=== PATIENT | male | born 1990 | race Caucasian/White ===

== ENCOUNTER 2019-08-28 19:09 | Emergency (ER) | payer OTHER ==
[~2019-08-28 19:09] MED LIST: Iopamidol 370 76% 100 ML VIAL ONE
[2019-08-28] MEDS ORDERED: Ondansetron ODT 4 MG TAB ONE (19:33)
[2019-08-28 19:50] LABS: #Lymphocytes 1.5 thou/uL (1.20-3.40); #Monocytes 0.7 thou/uL (0.11-0.59); #Neutrophils 12.8 thou/uL (1.40-6.50); %Basophils 0.3 % (0.0-1.0); %Eosinophils 0.2 % (0.0-10.0); %Lymphocytes 10.1 % (21.0-51.0); %Monocytes 4.7 % (0.0-10.0); %Neutrophils 84.7 % (42.0-75.0); Hemoglobin 15.3 g/dL (14.0-18.0); Mean Corpuscular HGB CONC 34.7 g/dL (32.0-36.0); Mean Corpuscular Volume 92.3 fL (78.0-98.0); Mean Platelet Volume 6.1 fL (7.4-10.4); Platelet Count 274 thou/uL (130-400); RBC Distribution Width 11.5 % (11.5-14.5); Red Blood Cell (RBC) Count 4.78 mill/uL (4.70-6.10); White Blood Cell (WBC) Count 15.2 thou/uL (4.8-10.8)
[2019-08-28 20:09] LABS: ALT (SGPT) 36 U/L (8-55); AST (SGOT) 24 U/L (5-34); Albumin 4.5 g/dL (3.5-5.0); Alkaline Phosphatase 65 U/L (40-110); Anion Gap 12 mmol/L (10-20); BUN (Urea Nitrogen) 15 mg/dL (8.9-20.6); Bilirubin, Total 0.9 mg/dL (0.2-1.2); Calc. Creatinine Clearance 0 mL/min (70-130); Calcium 9.5 mg/dL (7.8-10.44); Carbon Dioxide 26 mmol/L (22-29); Chloride 99 mmol/L (98-107); Estimated GFR-MDRD 86; Globulin 2.7 g/dL (2.4-3.5); Glucose 117 mg/dL (70-105); Lipase 14 U/L (8-78); Potassium 3.7 mmol/L (3.5-5.1); Protein, Total 7.2 g/dL (6.0-8.3); Sodium 133 mmol/L (136-145)
[2019-08-28] MEDS ORDERED: Morphine 4 MG/ML VIAL ONE (20:21)
[2019-08-28] MEDS ORDERED: Ondansetron PF 4 MG/2 ML Vial ONE (20:21)
[2019-08-28] MEDS ORDERED: Meropenem 2 GM, Admixture Fee 1 EACH in Sodium Chloride 0.9% 100 ML IVPB SCH (20:45)
--- NOTE | 2019-08-28 21:16 | CT ---
CT Abdomen Pelvis W Con: 08/28/2019 8:02 PM CLINICAL INFORMATION: Diffuse abdominal pain COMPARISON: None. TECHNIQUE: Multiple contiguous axial images were obtained and a CT of the abdomen and pelvis with IV contrast. C oronal and sagittal reformats were performed. FINDINGS: Lower Chest: within normal limits. Abdomen: Liver: within normal limits. Bile Ducts: Normal caliber. Gallbladder: No calcified gallstones. Normal caliber wall. Pancreas: within normal limits. Spleen: within normal limits. Adrenals: within normal limits. Kidneys: within normal limits. Pelvis: Reproductive Organs: No pelvic masses. Ureters: within normal limits. Bladder: within normal limits. Peritoneum: No ascites or free air, no fluid collection. Bowel: Normal caliber. Mesentery and Retroperitoneum: No enlarged mesenteric or retroperitoneal lymph nodes. Metallic coils in the left abdomen may be within the gonadal vein. Vessels: Normal. Abdominal Wall: within normal limits. Bones: Within normal limits IMPRESSION: No evidence of acute intraabdominal or pelvic abnormality.
== END 2019-08-28 22:00 | disposition home or self-care (01) ==
LOC: ERS 19:09
DX: R10.31 Right lower quadrant pain (principal)
CPT/HCPCS: 74177; 80053; 83690; 85025; 96361; 96365; 96375; J2185; J2270; J2405; J3490; Q0162; Q9967

== ENCOUNTER 2019-08-29 06:16 | Emergency (ER) | payer OTHER, SELFPAY ==
[2019-08-29 07:04] LABS: #Eosinphils 0.1 thou/uL (0.0-0.7); #Lymphocytes 2.8 thou/uL (1.20-3.40); #Monocytes 0.9 thou/uL (0.11-0.59); #Neutrophils 7.9 thou/uL (1.40-6.50); %Basophils 0.3 % (0.0-1.0); %Eosinophils 0.7 % (0.0-10.0); %Lymphocytes 23.9 % (21.0-51.0); %Monocytes 7.3 % (0.0-10.0); %Neutrophils 67.8 % (42.0-75.0); Hemoglobin 13.7 g/dL (14.0-18.0); Mean Corpuscular HGB CONC 34.6 g/dL (32.0-36.0); Mean Corpuscular Hemoglobin 32.5 pg (27.0-31.0); Mean Corpuscular Volume 93.7 fL (78.0-98.0); Mean Platelet Volume 5.9 fL (7.4-10.4); Platelet Count 210 thou/uL (130-400); RBC Distribution Width 11.7 % (11.5-14.5); Red Blood Cell (RBC) Count 4.23 mill/uL (4.70-6.10); White Blood Cell (WBC) Count 11.7 thou/uL (4.8-10.8)
[2019-08-29 07:28] LABS: ALT (SGPT) 31 U/L (8-55); AST (SGOT) 20 U/L (5-34); Albumin 3.8 g/dL (3.5-5.0); Alkaline Phosphatase 55 U/L (40-110); Anion Gap 10 mmol/L (10-20); BUN (Urea Nitrogen) 11 mg/dL (8.9-20.6); Bilirubin, Total 1.1 mg/dL (0.2-1.2); Calc. Creatinine Clearance 0 mL/min (70-130); Calcium 8.6 mg/dL (7.8-10.44); Carbon Dioxide 27 mmol/L (22-29); Chloride 105 mmol/L (98-107); Estimated GFR-MDRD 83; Globulin 2.4 g/dL (2.4-3.5); Glucose 98 mg/dL (70-105); Potassium 3.8 mmol/L (3.5-5.1); Protein, Total 6.2 g/dL (6.0-8.3); Sodium 138 mmol/L (136-145)
[2019-08-29 08:09] LABS: Bilirubin Negative (Negative); Blood, Urine Negative (Negative); Clarity Clear (Clear); Glucose, Urine (Dipstick) Normal (Negative); Leukocyte Negative Leu/uL (Negative); Nitrite Negative (Negative); Protein, Urine (Dipstick) Negative (Neg-Trace); Urobilinogen Normal mg/dL (Less than 2)
== END 2019-08-29 08:54 | disposition home or self-care (01) ==
LOC: ERS 06:16
DX: R10.33 Periumbilical pain (principal); R11.2 Nausea with vomiting, unspecified
CPT/HCPCS: 36415; 80053; 81003; 85025; 99284

== ENCOUNTER 2019-08-30 18:28 | Emergency (ER) | payer SELFPAY ==
[2019-08-30 19:47] LABS: #Basophils 0.1 thou/uL (0.0-0.2); #Eosinphils 0.1 thou/uL (0.0-0.7); #Lymphocytes 2.8 thou/uL (1.20-3.40); #Monocytes 0.6 thou/uL (0.11-0.59); #Neutrophils 2.7 thou/uL (1.40-6.50); %Basophils 0.9 % (0.0-1.0); %Eosinophils 2.2 % (0.0-10.0); %Lymphocytes 45.1 % (21.0-51.0); %Monocytes 8.7 % (0.0-10.0); %Neutrophils 43.1 % (42.0-75.0); Hemoglobin 13.5 g/dL (14.0-18.0); Mean Corpuscular HGB CONC 34.4 g/dL (32.0-36.0); Mean Corpuscular Hemoglobin 32.2 pg (27.0-31.0); Mean Corpuscular Volume 93.8 fL (78.0-98.0); Platelet Count 222 thou/uL (130-400); RBC Distribution Width 11.5 % (11.5-14.5); Red Blood Cell (RBC) Count 4.19 mill/uL (4.70-6.10); White Blood Cell (WBC) Count 6.3 thou/uL (4.8-10.8)
[2019-08-30 20:02] LABS: ALT (SGPT) 30 U/L (8-55); AST (SGOT) 24 U/L (5-34); Albumin 4.2 g/dL (3.5-5.0); Alkaline Phosphatase 55 U/L (40-110); Anion Gap 11 mmol/L (10-20); BUN (Urea Nitrogen) 8 mg/dL (8.9-20.6); Bilirubin, Total 0.6 mg/dL (0.2-1.2); Calc. Creatinine Clearance 0 mL/min (70-130); Calcium 8.9 mg/dL (7.8-10.44); Carbon Dioxide 29 mmol/L (22-29); Chloride 104 mmol/L (98-107); Estimated GFR-MDRD 87; Globulin 2.4 g/dL (2.4-3.5); Glucose 88 mg/dL (70-105); Potassium 3.7 mmol/L (3.5-5.1); Protein, Total 6.6 g/dL (6.0-8.3); Sodium 140 mmol/L (136-145)
--- NOTE | 2019-08-31 10:08 | CON ---
DATE OF CONSULTATION: CHIEF COMPLAINT: Abdominal pain. HISTORY OF PRESENT ILLNESS: Mr. Samuels is a 29-year-old male with abdominal pain since Wednesday. He states that Wednesday, he began having severe diffuse abdominal pain, nausea, and vomiting. The symptoms persisted through the evening, so he came into the emergency room. A CT scan was performed, which did not show any acute abnormalities and this was done with IV contrast with no p.o. contrast. He did have an elevation in his white count, but no fevers or chills and went home from the emergency room. He states that the abdominal pain persisted, but became more centered in the epigastrium and was sort of dull in quality with intermittent exacerbation on Wednesday, but his symptoms were [id number] and he was able to keep down liquids and some food, although eating and drinking did seem to exacerbate his symptoms. He states that since the onset of his symptoms, the pain has been more persistent in the upper abdomen, but that he is most tender to palpation in the right lower quadrant and this has been . He states that from Wednesday to the day, his symptoms have not changed much. He states that the pain is a little better and is only happening intermittently. I saw him in the emergency room. He was not having any pain. However, he states that he has been taking less by mouth because of eating and drinking exacerbating the symptoms. He has not had any fevers or chills throughout this time. He denies any unusual ingestions or ill contact. The pain in the right lower quadrant is treated by sudden movements or tensing of stomach muscles. He has been having normal bowel movements throughout. He did have some diarrhea Wednesday but that was attributed to MiraLAX, which he took because he was told that the CT showed that he had some possible constipation. PAST MEDICAL HISTORY: None. PAST SURGICAL HISTORY: Varicocele surgery . FAMILY HISTORY: Noncontributory. REVIEW OF SYSTEMS: Ten-system review of systems is negative except per HPI. SOCIAL HISTORY: The patient does not smoke. Use illicit drugs and drinks only rarely and not recently. ALLERGIES: NO KNOWN DRUG ALLERGIES. OUTPATIENT MEDICATION: No outpatient medication. PHYSICAL EXAMINATION: VITAL SIGNS: The patient is afebrile with normal vital signs. GENERAL: Reveals a healthy-appearing young man, in no acute distress. He is not flushed or toxic, jaundiced or icteric in appearance. HEENT: Unremarkable. NECK: Supple without lymphadenopathy or thyroid nodules. HEART: Regular in its rate and rhythm. No murmurs, rubs, or gallops. LUNGS: Clear to auscultation bilaterally. ABDOMEN: Soft and nondistended. He has focal tenderness in the right lower quadrant with some rebound. Mild tenderness in the epigastrium. No guarding or rigidity. Negative heel tap, Rovsing's, and obturator signs. EXTREMITIES: Warm and well perfused without edema. NEURO: No focal deficits. PSYCHIATRIC: Alert, oriented, and appropriate. LABORATORY DATA: White count today is normal with a normal differential. He came in on Wednesday. His white count was elevated at 15 and he had a slight left shift, but this has improved over the past 2 days. ASSESSMENT: Abdominal pain, likely due to viral gastroenteritis with right lower quadrant tenderness, perhaps attributable to mesenteric adenitis. I think it is extremely unlikely that the patient has appendicitis since the symptom seems to be slowly improving, his white count is normalizing, and he has not had any fevers or chills. He was encouraged to increase his fluid intake and return if he has worsening symptoms. We did discuss repeating his CT scan. However, I think that the yield is low. He does not have any evidence of obstruction and his clinical picture is more consistent with a self-limiting process. However, if his symptoms do not resolve or if they did not worsen, I would recommend repeating CT scan this time with oral contrast because of the thin body habitus. CT with IV contrast only was not as helpful as if he had refused oral contrast. Job ID: [id number]
== END 2019-08-30 20:45 | disposition home or self-care (01) ==
LOC: ERS 18:28
DX: R10.31 Right lower quadrant pain (principal)
CPT/HCPCS: 36415; 80053; 85025; 99284

== ENCOUNTER 2020-05-13 15:29 | Outpatient (CLI) | payer OTHER ==
--- NOTE | 2020-05-13 16:57 | MRI ---
MRI OF RIGHT INDEX FINGER PERFORMED WITHOUT CONTRAST ENHANCEMENT: History: Index finger pain, injury about 4 months ago. Comparison: Plain film evaluation, 02-22-2020. FINDINGS: The marrow signal change within the phalanges is normal. On the ulnar side of the PIP joint, the collateral ligament is indistinct as compared to the radial s deandra. There is no abnormalities noted of either the extensor tendons or extensor tendon costa region. T he flexor tendons are also unremarkable. No tenosynovitis change. No bolstering of the flexor tendon to suggest any type of pulling injury. IMPRESSION: Some mild increased signal change and thickening to the ulnar side of the collateral ligament of the PIP joint. No other findings. No subluxation or evidence of any type of marrow edema change in this a elyssa. POS: [facility]
== END 2020-05-13 15:30 | disposition home or self-care (01) ==
LOC: BICMRI 15:29 → MRI 15:30
PROVIDERS: ATTEND Orthopaedic Surgery
DX: S63.610A Unspecified sprain of right index finger, initial encounter (principal)

== ENCOUNTER 2020-11-15 17:30 | Outpatient (CLI) | payer OTHER, SELFPAY | END 2020-11-15 17:31 | disposition home or self-care (01) | LOC: SLEEPLAB 17:30 | PROVIDERS: ATTEND Dentist General Practice | DX: G47.33 Obstructive sleep apnea (adult) (pediatric) (principal); R06.83 Snoring; G47.00 Insomnia, unspecified | CPT/HCPCS: 95806 ==

== ENCOUNTER 2021-07-28 01:08 | Observation (INO) | payer OTHER ==
[2021-07-28 02:07] LABS: Hemoglobin 14.8 g/dL (14.0-18.0); Mean Corpuscular HGB CONC 35.2 g/dL (32.0-36.0); Mean Corpuscular Hemoglobin 32.5 pg (27.0-31.0); Mean Corpuscular Volume 92.1 fL (78.0-98.0); Platelet Count 227 thou/uL (130-400); RBC Distribution Width 11.8 % (11.5-14.5); Red Blood Cell (RBC) Count 4.57 mill/uL (4.70-6.10); White Blood Cell (WBC) Count 4.6 thou/uL (4.8-10.8)
[2021-07-28] MEDS ORDERED: Ondansetron PF 4 MG/2 ML Vial ONE ×2 (02:07→09:38)
[2021-07-28] MEDS ORDERED: Morphine 4 MG/ML VIAL ONE (02:07)
[2021-07-28 02:24] LABS: ALT (SGPT) 20 U/L (8-55); AST (SGOT) 23 U/L (5-34); Albumin 3.9 g/dL (3.5-5.0); Alkaline Phosphatase 64 U/L (40-110); Anion Gap 10 mmol/L (10-20); BUN (Urea Nitrogen) 8 mg/dL (8.9-20.6); Bilirubin, Total 0.5 mg/dL (0.2-1.2); Calc. Creatinine Clearance 0 mL/min (70-130); Calcium 8.9 mg/dL (7.8-10.44); Carbon Dioxide 25 mmol/L (22-29); Chloride 105 mmol/L (98-107); Globulin 2.8 g/dL (2.4-3.5); Glucose 115 mg/dL (70-105); Protein, Total 6.7 g/dL (6.0-8.3); Sodium 136 mmol/L (136-145)
[2021-07-28] MEDS ORDERED: diphenhydrAMINE 50 MG/ML VIAL ONE (02:24)
[2021-07-28 02:34] LABS: Band 1 % (5-11); Eosinophils 1 % (0-10); Lymphocytes 33 % (21-51); MDiff Complete? YES; Monocytes 24 % (0-10); Neutrophil 35 % (42-75); Platelet Morphology Comment Appears Adequate; RBC Morphology Normal; Reactive Lymphocytes 6 % (0-10)
[2021-07-28] MEDS ORDERED: Piperacillin/Tazobactam 3.375 GM VIAL ONE (04:15)
[2021-07-28 04:40] LABS: Bilirubin Negative (Negative); Blood, Urine Negative (Negative); Clarity Clear (Clear); Glucose, Urine (Dipstick) Normal (Negative); Ketone, Urine Trace mg/dL (Negative); Leukocyte Negative Leu/uL (Negative); Nitrite Negative (Negative); Protein, Urine (Dipstick) Negative (Neg-Trace); Specific Gravity, Urine 1.023 (1.002-1.036); pH, Urine 6.5 (5.0-9.0)
[2021-07-28 06:25] VITALS: BMI 22.6
[2021-07-28] MEDS ORDERED: Fentanyl 100 MCG/2 ML VIAL SLOW IVP PRN ×3 (07:25→10:55)
[2021-07-28 08:45] LABS: SARS-CoV-2 NAA Rapid Test Not Detected (NotDetected)
[2021-07-28] MEDS ORDERED: Ondansetron PF 4 MG/2 ML Vial IVP PRN ×2 (08:48→10:55)
[2021-07-28] MEDS ORDERED: Ondansetron ODT 4 MG TAB PO PRN (08:48)
[2021-07-28] MEDS ORDERED: Midazolam HCl 2 mg/2 ml Vial ONE (08:50)
[2021-07-28] MEDS ORDERED: HYDROmorphone 2 MG/ML VIAL ONE (08:50)
[2021-07-28] MEDS ORDERED: Fentanyl 100 MCG/2 ML VIAL ONE ×2 (08:50→11:09)
[2021-07-28] MEDS ORDERED: Sodium Chloride 0.9% 1,000 ML IV SCH ×2 (09:00→10:55)
[2021-07-28] MEDS ORDERED: cefOXitin Sodium/Dextrose 2 GM/50 ML BAG ONE (09:15)
[2021-07-28] MEDS ORDERED: Lidocaine 1% w/Epinephrine 1:100K 20 ML VIAL ONE (09:16)
[2021-07-28] MEDS ORDERED: Bupivacaine 0.25% HCL 30 ML VIAL ONE (09:16)
[2021-07-28] MEDS ORDERED: Lidocaine 1% PF 5 ML VIAL ONE (09:38)
[2021-07-28] MEDS ORDERED: Dexamethasone 20 MG/5 ML VIAL ONE (09:38)
[2021-07-28] MEDS ORDERED: Succinylcholine 200 MG/10 ml SYRINGE FS ONE (09:38)
[2021-07-28] MEDS ORDERED: Rocuronium Bromide 10 MG/ML (10ML VIAL) ONE (09:38)
[2021-07-28] MEDS ORDERED: Glycopyrrolate 0.2 MG/ML 5 ML SYRINGE ONE (09:38)
[2021-07-28] MEDS ORDERED: PROPOFOL 200 MG/20 ML VIAL ONE (09:38)
[2021-07-28] MEDS ORDERED: Ketorolac Tromethamine 30 MG/ML VIAL ONE (09:38)
[2021-07-28] MEDS ORDERED: Dextrose 5% in Water 1,000 ML IV PRN (10:55)
[2021-07-28] MEDS ORDERED: Promethazine HCl 25 MG/ML VIAL IM PRN (10:55)
[2021-07-28] MEDS ORDERED: HYDROcodone/Acetaminophen 7.5/325 mg Tablet PO PRN ×2 (10:55)
[2021-07-28] MEDS ORDERED: hydrALAZINE 20 MG/ML VIAL SLOW IVP PRN (10:55)
[2021-07-28] MEDS ORDERED: Dextrose 50% Abboject 50 ML SYRINGE SLOW IVP PRN (10:55)
[2021-07-28 11:53] VITALS: TEMP 97.4
[2021-07-28] MEDS ORDERED: FLU VACC QS2021-22(6MOS UP)/PF 60 MCG/0.5 ML SYRINGE IM ONE (12:00)
[2021-07-28] MEDS ORDERED: Piperacillin/Tazobactam 3.375 GM in Sodium Chloride 0.9% 100 ML IVPB SCH (13:00)
[2021-07-28 15:47] VITALS: BP 121/79
[2021-07-28] MEDS ORDERED: Famotidine/PF 20 mg/2ml Vial SLOW IVP SCH (21:00)
[2021-07-28] MEDS ORDERED: Famotidine 20 MG TAB PO SCH (21:00)
== END 2021-07-28 16:11 | disposition home or self-care (01) ==
LOC: ERS 01:08 → SURG B 04:18
PROVIDERS: ADMIT Surgery; ATTEND Surgery
PROC: 0DTJ4ZZ Resection of Appendix, Percutaneous Endoscopic Approach (ICD-10-PCS; principal; 2021-07-28)
DX: K35.80 Unspecified acute appendicitis (principal); Z88.5 Allergy status to narcotic agent; Z20.822 Contact with and (suspected) exposure to COVID-19
CPT/HCPCS: 36415; 74176; 80053; 81003; 85025; 88304; 96365; 96375; G0378; J0694; J1100; J1170; J1200; J1885; J2250; J2270; J2405; J2543; J2704; J3010; J7050; S0020; U0002

== ENCOUNTER 2023-05-21 21:50 | Emergency (ER) | payer OTHER ==
[2023-05-21 22:29] LABS: #Eosinphils 0.3 thou/uL (0.0-0.7); #Monocytes 0.6 thou/uL (0.11-0.59); #Neutrophils 6.6 thou/uL (1.40-6.50); %Basophils 0.4 % (0.0-1.0); %Eosinophils 2.4 % (0.0-10.0); %Lymphocytes 28.9 % (21.0-51.0); %Monocytes 5.8 % (0.0-10.0); %Neutrophils 62.3 % (42.0-75.0); Hemoglobin 14.9 g/dL (14.0-18.0); Mean Corpuscular HGB CONC 34.9 g/dL (32.0-36.0); Mean Corpuscular Hemoglobin 31.2 pg (27.0-31.0); Mean Corpuscular Volume 89.3 fl (78.0-98.0); Mean Platelet Volume 8.6 fL (7.4-10.4); Platelet Count 248 10x3/uL (130-400); RBC Distribution Width 11.9 % (11.5-14.5); Red Blood Cell (RBC) Count 4.78 mill/uL (4.70-6.10); White Blood Cell (WBC) Count 10.6 10x3/uL (4.8-10.8)
[2023-05-21 22:59] LABS: ALT (SGPT) 22 U/L (8-55); AST (SGOT) 24 U/L (5-34); Albumin 4.4 g/dL (3.5-5.0); Alkaline Phosphatase 66 U/L (40-110); Anion Gap 12 mmol/L (10-20); BUN (Urea Nitrogen) 16 mg/dL (8.9-20.6); Bilirubin, Total 0.4 mg/dL (0.2-1.2); Calc. Creatinine Clearance 0 mL/min (70-130); Calcium 9.1 mg/dL (7.8-10.44); Carbon Dioxide 26 mmol/L (22-29); Chloride 105 mmol/L (98-107); Estimated GFR 77; Globulin 2.8 g/dL (2.4-3.5); Glucose 147 mg/dL (70-105); Potassium 3.6 mmol/L (3.5-5.1); Protein, Total 7.2 g/dL (6.0-8.3); Sodium 139 mmol/L (136-145)
[2023-05-22] MEDS ORDERED: Ketorolac Tromethamine 30 MG/ML VIAL ONE (00:04)
[2023-05-22] MEDS ORDERED: Lidocaine 1% w/Epinephrine 1:100K 20 ML VIAL ONE (00:04)
[2023-05-22] MEDS ORDERED: Doxycycline 100 MG CAP PO SCH (01:00)
== END 2023-05-22 01:10 | disposition home or self-care (01) ==
LOC: ERS 21:50
DX: L03.115 Cellulitis of right lower limb (principal)
CPT/HCPCS: 36415; 80053; 85025; 85652; 87070; 87205; 96372; J1885